=== PATIENT | female | born 1940 | race Caucasian/White ===

== ENCOUNTER → 2016-08-02 | Outpatient (CLI) | payer MEDICARE, OTHER ==
[~2016-08-02] MED LIST: ADALAT CC30 MG PO; ALDACTONE25 MG PO; AMIODARONE HCL400 MG PO; APRESOLINE25 MG PO; ASCORBIC ACID500 MG PO; CALCIUM + VITA1 EACH PO; CORDARONE,PACE200 MG PO; COREG12.5 MG PO; CYANOCOBAL1000 MCG/1 IM; DELTASONE10 MG PO; DICLOXACILLIN500 MG PO; FLONASE 50 MCG/16 GM NOSE; HYDROCHLOROTHIA25 MG PO; IPRAT-ALBUT 0.5-3 ML INH; LIPITOR10 MG PO; LUTEIN20 MG PO; MUCINEX600 MG PO; NORVASC5 MG PO; PERCOCET 5-3251 EACH PO; POTASSIUM99 M1 PO; POTASSIUM99 MG PO; PROAIR HFA8.5 GM INH; TOZAL SOFTGEL1 EACH PO; VISION PLUS LU1 EACH PO; VITAMIN B-121000 MCG PO; VITAMIN D-32000 UNIT PO; VOLTAREN50 MG PO; XARELTO20 MG PO
== END | disposition disaster alternative care site (69) ==
LOC: GPOC 07-27 11:00 → GRAD 07:41 → GPOC 08:00 → EDSTATUS 11:00
DX: Z47.89 Encounter for other orthopedic aftercare (principal); M50.323 Other cervical disc degeneration at C6-C7 level; M50.821 Other cervical disc disorders at C4-C5 level; M50.81 Other cervical disc disorders, high cervical region; M47.812 Spondylosis without myelopathy or radiculopathy, cervical region; M47.816 Spondylosis without myelopathy or radiculopathy, lumbar region
CPT/HCPCS: J2001